=== PATIENT | female | born 1960 | race Caucasian/White ===

== ENCOUNTER 2020-05-22 11:30 | Outpatient (CLI) | payer BC ==
[2020-05-22] MEDS ORDERED: iohexol 350MG/ML 100ml bottle IV ONE (11:43)
== END 2020-05-22 23:59 | disposition home or self-care (01) ==
LOC: 64 CT 11:30
PROVIDERS: ATTEND Internal Medicine Gastroenterology
DX: R07.9 Chest pain, unspecified (principal); R14.0 Abdominal distension (gaseous)
CPT/HCPCS: 71275; 74174; 76937; Q9967